=== PATIENT | female | born 1975 | race Caucasian/White ===

== ENCOUNTER → 2018-06-24 | Outpatient (CLI) | payer OTHER ==
--- NOTE | 2018-06-24 09:32 | Diagnostic Imaging Report ---
PROCEDURE: CT left lower extremity without contrast. TECHNIQUE: Multiple contiguous axial images were obtained through the left lower extremity without the use of intravenous contrast. Sagittal and coronal reformations were then performed. INDICATION: [place] a pop patellar pain There are no prior studies available for comparison. There is no fracture, dislocation or acute bony abnormality evident. The knee joint itself is fairly well-maintained. There is mild narrowing of the medial compartment of the knee joint. There is no obvious abnormality of the quadriceps or infrapatellar tendons. The cruciate ligaments, the collateral ligaments, the biceps femoris tendon and iliotibial band are not well visualized. Neither meniscus is well imaged either. There is perhaps a small joint effusion. The soft tissues are unremarkable IMPRESSION: 1. There is no evidence for an acute bony abnormality. 2. There is no obvious injury to the quadriceps or infrapatellar tendons. The other major ligaments and tendons and menisci are not well visualized. If clinical concern regarding an underlying abnormality persists, then MRI would be recommended for further evaluation. Dictated by: Dictated on workstation # [id number]
== END ==
LOC: RAD 08:41
PROVIDERS: ATTEND Nurse Practitioner Family
DX: M25.562 Pain in left knee (principal)
CPT/HCPCS: 73700

== ENCOUNTER 2018-10-25 14:23 | Emergency (ER) | payer OTHER ==
[~2018-10-25] VITALS: Ht 152.4 cm; Wt 78.5 kg
[2018-10-25] MEDS ORDERED: fentaNYL INJECTION 100 MCG/2 ML AMP ONE (14:36)
[2018-10-25] MEDS ORDERED: ONDANSETRON 4 MG/2 ML (SDV) Z0FRAN ONE (14:37)
[2018-10-25] MEDS ORDERED: NS IV 1000 ML 1,000 ML ONE (14:37)
--- NOTE | 2018-10-25 14:43 | ED Abdominal Pain ---
General Stated Complaint: ABD PAIN Exam Limitations: No Limitations History of Present Illness Date Seen by Provider: October 25, 2018 Time Seen by Provider: 14:46 Initial Comments 43-year-old female with history of lupus on methotrexate injections weekly and Plaquenil daily presents to ER with a 2 day history of right upper quadrant abdominal pain radiating through to her right flank associated with nausea and intense vomiting. She was seen at [facility] the onset of this 2 days ago , had urine sample done, that culture came back today negative, no improvement despite Macrobid. Timing/Duration: 1-2 Days Severity/Quality: Moderate Location: RUQ Radiation: No Radiation Activities at Onset: None Associated Symptoms: Nausea/Vomiting Allergies and Home Medications Allergies Coded Allergies: Penicillins (Verified Allergy, Unknown, 10/25/18) Sulfa (Sulfonamide Antibiotics) (Verified Allergy, Unknown, 10/25/18) Uncoded Allergies: loop diuretics (Allergy, Unknown, 10/25/18) increases heart rate Home Medications Fluticasone Propionate 9.9 Ml [place].susp, 1 SPRAY NS DAILY, (Reported) 1 SPRAY EACH NARE DAILY Ondansetron 4 Mg Tab.rapdis, 4 MG PO Q6H PRN for NAUSEA/VOMITING Prescribed by: WILMER MERCADO on 10/25/18 1538 Oxycodone HCl/Acetaminophen 1 Each Tablet, 1 EACH PO Q4H PRN for PAIN-MODERATE Prescribed by: WILMER MERCADO on 10/25/18 1543 Patient Home Medication List Home Medication List Reviewed: Yes Review of Systems Review of Systems Constitutional: see HPI EENTM: No Symptoms Reported Respiratory: No Symptoms Reported Cardiovascular: No Symptoms Reported Gastrointestinal: See HPI, Abdominal Pain, Nausea Genitourinary: No Symptoms Reported Musculoskeletal: no symptoms reported Skin: no symptoms reported Psychiatric/Neurological: No Symptoms Reported Endocrine: No Symptoms Reported Past Pqhjhuu-Wrdfic-Hbtwgm Hx Patient Social History Recent Foreign Travel: No Contact w/Someone Who Travel: No Physical Exam Vital Signs Vital Signs - First Documented 10/25/18 14:25 Temp 98.5 Pulse 120 Resp 18 B/P (MAP) 138/97 (111) Pulse Ox 98 O2 Delivery Room Air Capillary Refill : Height/Weight/BMI Height: '" Weight: lbs. oz. kg; BMI Method: General Appearance: WD/WN, no apparent distress HEENT: PERRL/EOMI, normal ENT inspection Respiratory: no respiratory distress, no accessory muscle use Gastrointestinal: normal bowel sounds, soft, tenderness Extremities: normal range of motion, non-tender Neurologic/Psychiatric: alert, normal mood/affect, oriented x 3 Skin: normal color, warm/dry Progress/Results/Core Measures Results/Orders Lab Results Laboratory Tests Test 10/25/18 14:38 Range/Units White Blood Count 9.9 4.3-11.0 10^3/uL Red Blood Count 4.47 4.35-5.85 10^6/uL Hemoglobin 13.1 11.5-16.0 G/DL Hematocrit 39 35-52 % Mean Corpuscular Volume 87 80-99 FL Mean Corpuscular Hemoglobin 29 25-34 PG Mean Corpuscular Hemoglobin Concent 34 32-36 G/DL Red Cell Distribution Width 12.8 10.0-14.5 % Platelet Count 444 H 130-400 10^3/uL Mean Platelet Volume 9.4 7.4-10.4 FL Neutrophils (%) (Auto) 67 42-75 % Lymphocytes (%) (Auto) 21 12-44 % Monocytes (%) (Auto) 8 0-12 % Eosinophils (%) (Auto) 4 0-10 % Basophils (%) (Auto) 0 0-10 % Neutrophils # (Auto) 6.6 1.8-7.8 X 10^3 Lymphocytes # (Auto) 2.1 1.0-4.0 X 10^3 Monocytes # (Auto) 0.8 0.0-1.0 X 10^3 Eosinophils # (Auto) 0.4 H 0.0-0.3 10^3/uL Basophils # (Auto) 0.0 0.0-0.1 10^3/uL Sodium Level 137 135-145 MMOL/L Potassium Level 3.7 3.6-5.0 MMOL/L Chloride Level 102 98-107 MMOL/L Carbon Dioxide Level 22 21-32 MMOL/L Anion Gap 13 5-14 MMOL/L Blood Urea Nitrogen 11 7-18 MG/DL Creatinine 0.86 0.60-1.30 MG/DL Estimat Glomerular Filtration Rate > 60 BUN/Creatinine Ratio 13 Glucose Level 89 70-105 MG/DL Calcium Level 9.7 8.5-10.1 MG/DL Corrected Calcium 9.5 8.5-10.1 MG/DL Total Bilirubin 0.3 0.1-1.0 MG/DL Aspartate Amino Transf (AST/SGOT) 14 5-34 U/L Alanine Aminotransferase (ALT/SGPT) 18 0-55 U/L Alkaline Phosphatase 79 40-136 U/L Total Protein 7.5 6.4-8.2 GM/DL Albumin 4.3 3.2-4.5 GM/DL Lipase 21 8-78 U/L Serum Test, Qualitative NEGATIVE NEGATIVE My Orders Orders - WILMER MERCADO APRN Fentanyl Injection (Sublimaze Injection (10/25/18 14:36) Ondansetron Injection (Zofran Injectio (10/25/18 14:37) Cbc With Automated Diff (10/25/18 14:39) Comprehensive Metabolic Panel (10/25/18 14:39) Lipase (10/25/18 14:39) Hcg,Qualitative Serum (10/25/18 14:39) Ed Iv/Invasive Line Start (10/25/18 14:39) Fentanyl Injection (Sublimaze Injection (10/25/18 14:45) Ondansetron Injection (Zofran Injectio (10/25/18 14:45) Ns Iv 1000 Ml (Sodium Chloride 0.9%) (10/25/18 14:45) Ns Iv 1000 Ml (Sodium Chloride 0.9%) (10/25/18 14:37) Us Gallbladder [id number] (10/25/18 14:48) Ketorolac Injection (Toradol Injection) (10/25/18 15:45) Medications Given in ED Current Medications Medications Dose Ordered Sig/Cruz Route Start Time Stop Time Status Last Admin Dose Admin Fentanyl Citrate 50 mcg ONCE ONCE IVP 10/25/18 14:45 10/25/18 14:46 DC 10/25/18 14:44 50 MCG Ondansetron HCl 8 mg ONCE ONCE IVP 10/25/18 14:45 10/25/18 14:46 DC 10/25/18 14:44 8 MG Vital Signs/I&O 10/25/18 14:25 Temp 98.5 Pulse 120 Resp 18 B/P (MAP) 138/97 (111) Pulse Ox 98 O2 Delivery Room Air Diagnostic Imaging Diagonstic Imaging: Xray Comments NAME: HEVER GALVAN REC#: [id number] PT STATUS: REG ER : 1975 PHYSICIAN: WILMER MERCADO APRN ADMIT DATE: 10/25/18/ER Draft Date of Exam:10/25/18 US GALLBLADDER [id number] PROCEDURE: US gallbladder. TECHNIQUE: Multiple real-time grayscale images were obtained over the right upper quadrant in various projections. INDICATION: Abdominal pain. FINDINGS: There is a 2 cm cyst in the left lobe of the liver. Liver parenchyma is otherwise unremarkable. There are multiple stones in the gallbladder. The gallbladder wall is thickened and there is a positive sonographic Otero sign. Pancreas is obscured by bowel gas. The common duct is not appreciably dilated. Right kidney measures 8.7 cm in length and appears normal. There is no ascites. IMPRESSION: Cholecystolithiasis with positive sonographic Otero sign. Dictated on workstation # [id number] Dict: 10/25/18 1545 Trans: 10/25/18 1548 [facility] [id number] Interpreted by: BUSHRA LINDA MD Electronically signed by: Departure Communication (Admissions) 5131-armored service technician reports there are 2 stones in the gallbladder each measuring about 1 cm, one of which is mobile one of which seems to be lodged in the neck. There is no pericholecystic fluid, the wall is not thickened at 2.8 mm. We will discharge home. I discussed the case with Dr. Penaloza and he'll see her on either Sunday or Sunday. Impression Primary Impression: Symptomatic cholelithiasis Disposition: HOME, SELF-CARE Condition: Stable Departure-Patient Inst. Decision time for Depature: 15:35 Referrals: TERRY FRYE APRN (PCP) Primary Care Physician JOSE PENALOZA DO Patient Instructions: Gallstones Add. Discharge Instructions: 1. Low-fat bland diet in the interim. Pain medication as directed. Return to ER for intolerable pain, intolerable vomiting or nausea, development or fevers and chills. Otherwise, plan to go to Dr. Penaloza's office on Sunday. Call Sunday morning for an appointment time. Scripts Oxycodone HCl/Acetaminophen (Oxycodone-Acetaminophen 5-325) 1 Each Tablet 1 EACH PO Q4H PRN for PAIN-MODERATE MDD 6 for 3 Days, #14 TAB 0 Refills Prov: WILMER MERCADO APRN 10/25/18 Ondansetron (Ondansetron Odt) 4 Mg Tab.rapdis 4 MG PO Q6H PRN for NAUSEA/VOMITING, #8 TAB 0 Refills Prov: WILMER MERCADO APRN 10/25/18 Copy Copies To 1: JOSE PENALOZA PETER J APRN October 25, 2018 14:42
[2018-10-25] MEDS ORDERED: ONDANSETRON 4 MG/2 ML (SDV) Z0FRAN IVP ONE (14:45)
[2018-10-25] MEDS ORDERED: fentaNYL INJECTION 100 MCG/2 ML AMP IVP ONE (14:45)
[2018-10-25] MEDS ORDERED: NS IV 1000 ML 1,000 ML IV SCH (14:45)
[2018-10-25 14:51] LABS: BASOPHILS % (AUTO) 0 % (0-10); EOSINOPHILS # (AUTO) 0.4 10^3/uL (0.0-0.3); EOSINOPHILS % (AUTO) 4 % (0-10); HEMATOCRIT 39 % (35-52); HEMOGLOBIN 13.1 G/DL (11.5-16.0); LYMPHOCYTES # (AUTO) 2.1 X 10^3 (1.0-4.0); LYMPHOCYTES % (AUTO) 21 % (12-44); MEAN CORPUSCULAR HEMOGLOBIN 29 PG (25-34); MEAN CORPUSCULAR HGB CONC 34 G/DL (32-36); MEAN CORPUSCULAR VOLUME 87 FL (80-99); MEAN PLATELET VOLUME 9.4 FL (7.4-10.4); MONOCYTES # (AUTO) 0.8 X 10^3 (0.0-1.0); MONOCYTES % (AUTO) 8 % (0-12); NEUTROPHILS # (AUTO) 6.6 X 10^3 (1.8-7.8); NEUTROPHILS % (AUTO) 67 % (42-75); PLATELET COUNT 444 10^3/uL (130-400); RED CELL DISTRIBUTION WIDTH 12.8 % (10.0-14.5); WHITE BLOOD COUNT 9.9 10^3/uL (4.3-11.0)
[2018-10-25] MEDS ORDERED: methotrexate (14:54)
[2018-10-25] MEDS ORDERED: Plaquenil (14:54)
[2018-10-25] MEDS ORDERED: FLUT9.9S NS (14:55)
[2018-10-25] MEDS ORDERED: FLUO10CA29 PO (14:55)
[2018-10-25] MEDS ORDERED: allegra (14:56)
[2018-10-25 15:07] LABS: ALANINE AMINOTRANSFERASE 18 U/L (0-55); ALBUMIN 4.3 GM/DL (3.2-4.5); ALKALINE PHOSPHATASE 79 U/L (40-136); BILIRUBIN,TOTAL 0.3 MG/DL (0.1-1.0); BUN/CREATININE RATIO 13; CALCIUM 9.7 MG/DL (8.5-10.1); CARBON DIOXIDE 22 MMOL/L (21-32); CHLORIDE 102 MMOL/L (98-107); CREATININE SERUM 0.86 MG/DL (0.60-1.30); GFR ESTIMATED > 60; GLUCOSE 89 MG/DL (70-105); LIPASE 21 U/L (8-78); POTASSIUM 3.7 MMOL/L (3.6-5.0); SODIUM 137 MMOL/L (135-145); TOTAL PROTEIN 7.5 GM/DL (6.4-8.2)
[2018-10-25] MEDS ORDERED: ONDA4TAB11 PO (15:38)
[2018-10-25] MEDS ORDERED: ACHD5005 PO (15:38)
[2018-10-25] MEDS ORDERED: OXYC-471 PO (15:43)
[2018-10-25] MEDS ORDERED: KETOROLAC 30 MG/ML VIAL IVP ONE (15:45)
--- NOTE | 2018-10-25 15:49 | Diagnostic Imaging Report ---
PROCEDURE: US gallbladder. TECHNIQUE: Multiple real-time grayscale images were obtained over the right upper quadrant in various projections. INDICATION: Abdominal pain. FINDINGS: There is a 2 cm cyst in the left lobe of the liver. Liver parenchyma is otherwise unremarkable. There are multiple stones in the gallbladder. The gallbladder wall is thickened and there is a positive sonographic Otero sign. Pancreas is obscured by bowel gas. The common duct is not appreciably dilated. Right kidney measures 8.7 cm in length and appears normal. There is no ascites. IMPRESSION: Cholecystolithiasis with positive sonographic Otero sign. Dictated by: Dictated on workstation # [id number]
[2018-10-25 16:00] VITALS: BP 122/84
== END 2018-10-25 16:00 | disposition home or self-care (01) ==
LOC: EDUNIT# 14:23 → ER 14:24
DX: K80.20 Calculus of gallbladder without cholecystitis without obstruction (principal); Z88.0 Allergy status to penicillin; Z88.2 Allergy status to sulfonamides; Z88.8 Allergy status to other drugs, medicaments and biological substances; Z79.51 Long term (current) use of inhaled steroids
CPT/HCPCS: 36415; 76705; 80053; 83690; 84703; 85025

== ENCOUNTER 2018-10-31 08:30 | Outpatient (CLI) | payer OTHER ==
[~2018-10-31] VITALS: Ht 152.4 cm; Wt 78.5 kg
[~2018-10-31 08:30] MED LIST: ACHD5005 PO; BENZ-13 PO; CETI10TA20 PO; FEXO-46 PO; FLUO10CA29 PO; FLUT9.9S NS; HYDR200T78 PO; ONDA4TAB11 PO; OXYC-471 PO; Plaquenil; allegra; methotrexate
[2018-10-31] MEDS ORDERED: ACHD5005 PO (15:09)
[2018-10-31] MEDS ORDERED: DOCU-143 PO (15:09)
== END 2018-10-31 08:56 | disposition home or self-care (01) ==
LOC: PREOP 08:30
PROVIDERS: ATTEND Surgery
DX: Z01.818 Encounter for other preprocedural examination (principal)

== ENCOUNTER 2018-10-31 11:38 | Day surgery (SDC) | payer OTHER ==
[~2018-10-31] VITALS: Ht 152.4 cm; Wt 78.5 kg
[2018-10-31] VITALS (11 sets, daily range): BP systolic 105–122; BP diastolic 60–90
[2018-10-31] MEDS: LACTATED RINGERS 1,000 ML IV PRN ×2 (12:00→14:38)
[2018-10-31] MEDS ORDERED: CLINDAMYCIN 600 MG/50 ML IVPB 50 ML IV ONE (12:15)
[2018-10-31] MEDS ORDERED: MIDAZOLAM 2 MG/2 ML (VERSED) VIAL ONE (12:27)
[2018-10-31] MEDS ORDERED: ROCURONIUM 10 MG/ML 5 ML SYRINGE IV ONE (12:27)
[2018-10-31] MEDS ORDERED: LIDOCAINE PF 2% 5 ML (XYLOCAINE) VIAL ONE (12:27)
[2018-10-31] MEDS ORDERED: fentaNYL INJECTION 250 MCG/5 ML AMP ONE (12:27)
[2018-10-31] MEDS ORDERED: DEXAMETHASONE 10 MG/ML (DECADRON) 1 ML VIAL ONE (12:27)
[2018-10-31] MEDS ORDERED: ONDANSETRON 4 MG/2 ML (SDV) Z0FRAN ONE ×3 (12:27→15:42)
[2018-10-31] MEDS ORDERED: IOPAMIDOL 61% 30 ML (ISOVUE 300) VIAL IV ONE (12:36)
[2018-10-31] MEDS ORDERED: LIDOCAINE 1% INJ 20 ML 20 ML VIAL ONE ×2 (12:36→12:37)
[2018-10-31] MEDS ORDERED: BUP/EPI 0.5% 1:200,000 (SENSORCAINE) 30 ML VIAL ONE ×2 (12:36→12:37)
[2018-10-31] MEDS ORDERED: SEVOFLURANE (ULTANE) 15 ML INHAL SOLN ONE ×2 (12:41→15:13)
[2018-10-31] MEDS ORDERED: NEOSTIGMINE 1 MG/ML 5 ML SYRINGE ONE (12:41)
[2018-10-31] MEDS ORDERED: GLYCOPYRROLATE 0.2 MG/ML (ROBINUL) 2 ML VIAL ONE (12:41)
--- NOTE | 2018-10-31 12:50 | Progress Note-Pre Operative ---
Pre-Operative Progress Note H&P Reviewed The H&P was reviewed, patient examined and no changes noted. Date Seen by Provider: October 31, 2018 Time Seen by Provider: 12:49 Date H&P Reviewed: October 31, 2018 Time H&P Reviewed: 12:49 Pre-Operative Diagnosis: RUQ ABD PAIN, SYMTOMATIC CHOLELITHIASIS JOSE PENALOZA DO October 31, 2018 12:49
[2018-10-31] MEDS ORDERED: PHENYLEPHRINE 100 MCG/ML 10 ML (ANESTHESIA) SYR ONE (14:32)
[2018-10-31] MEDS ORDERED: DOCU-143 PO (15:09)
[2018-10-31] MEDS ORDERED: ACHD5005 PO (15:09)
--- NOTE | 2018-10-31 15:09 | Progress Note-Post Operative ---
Post-Operative Progess Note Surgeon (s)/Painter Touch Up (s) Surgeon JOSE PENALOZA DO Painter Touch Up: Dr. German Pre-Operative Diagnosis RUQ ABD PAIN, SYMTOMATIC CHOLELITHIASIS Post-Operative Diagnosis same Procedure & Operative Findings Date of Procedure 10/31/18 Procedure Performed/Findings Lap erlinda c ioc Anesthesia Type gen Estimated Blood Loss Estimated blood loss (mL): min Specimens/Packing Specimens Removed gallbladder JOSE PENALOZA DO October 31, 2018 15:09
--- NOTE | 2018-10-31 15:10 | Discharge Inst-Simple/Standard ---
Discharge Inst-Standard Discharge Medications New, Converted or Re-Newed RX: RX on Chart Patient Instructions/Follow Up Plan of Care/Instructions/FU: 2-3 weeks Anupam Activity as Tolerated: No Discharge Diet: Regular Diet Other Inst to Patient Follow up Appt: Make appointment for 2 weeks. Instructions: No lifting greater than 10 pounds. No strenuous activity. May shower in 24 hours, no tub bath or soaking. Use incentive spirometer at home as directed. No Smoking Skin/Wound Care: You have special glue over incisions it will fall off on its own. Symptoms to Report: Appetite Changes, Extremity Discoloration, Numbness/Tingling, Swelling Increased , Bleeding Excessive, Eyesight Changes, Pain Increased, Urine Color Change, Constipation(Persistent), Fever over 101 degree F, Pain/Pressure in chest, Urinating Difficulty, Cough Up/Vomit Blood, Heart Beat Irreg/Pounding, Pain/ Pressure in jaw, Vaginal Bleeding Increase, Cramps in feet or legs, Lightheadedness, Pain/Pressure in shoulder, Diarrhea(Persistent), Memory Changes Suddenly, Questions/Concerns, Weight gain consecutive days, Dizziness/ Fainting, Nausea/Vomiting, Shortness of Breath, Weight gain over 2 pounds. If eyes or skin turn yellow notify physician. If questions or concerns contact your physician Or seek help at emergency department. JOSE PENALOZA DO October 31, 2018 15:10
[2018-10-31] MEDS ORDERED: KETOROLAC 30 MG/ML VIAL ONE (15:11)
[2018-10-31] MEDS ORDERED: morphine INJ 10 MG/ML 1ML (SYR OR VIAL) IVP ONE (15:15)
[2018-10-31] MEDS ORDERED: HYDROmorphone 2 MG/ML VIAL (DILAUDID) IV ONE (15:15)
[2018-10-31] MEDS ORDERED: KETOROLAC 30 MG/ML VIAL IVP ONE (15:15)
[2018-10-31] MEDS ORDERED: MEPERIDINE (DEMEROL) INJ 50 MG/ML IVP ONE (15:15)
[2018-10-31] MEDS ORDERED: morphine INJ 10 MG/ML 1ML (SYR OR VIAL) ONE (15:32)
[2018-10-31] MEDS: ONDANSETRON 4 MG/2 ML (SDV) Z0FRAN IVP PRN ×2 (15:38→15:48)
[2018-10-31] MEDS ORDERED: HYDROcodone/APAP 5 MG/325 MG (LORTAB) TAB ONE (16:32)
[2018-10-31] MEDS ORDERED: HYDROcodone/APAP 5 MG/325 MG (LORTAB) TAB PO ONE (17:00)
--- NOTE | 2018-10-31 21:00 | Diagnostic Imaging Report ---
INDICATION: Fluoroscopy during intraoperative cholangiogram. FINDINGS: Fluoroscopy was provided in the OR during intraoperative cholangiogram. 11 seconds of fluoroscopy was utilized. IMPRESSION: Fluoroscopy during intraoperative cholangiogram. Dictated by: Dictated on workstation # [id number]
--- NOTE | 2018-11-01 02:15 | OPERATIVE REPORT ---
DATE OF SERVICE: 10/31/2018 PREOPERATIVE DIAGNOSIS: Symptomatic cholelithiasis, right upper quadrant abdominal pain. POSTOPERATIVE DIAGNOSIS: Symptomatic cholelithiasis, right upper quadrant abdominal pain. SURGEON: Jose Bo DO. TAB BUILDER: Dr. German, assisted in retraction, dissection and closure. ANESTHESIA: General. ESTIMATED BLOOD LOSS: Minimal. COMPLICATIONS: None. INDICATIONS: The patient is a 43-year-old female who has been having right upper quadrant abdominal pain. She has gallstones by ultrasound. She understands risks and benefits of procedure and wished to proceed with procedure. Consent was signed in the chart. DESCRIPTION OF PROCEDURE: The patient was taken to the operating suite, placed in supine position. She was prepped and draped in sterile fashion. Timeout was performed. A midline incision was just made above the umbilicus. Cautery was used to dissect down the fascia, which was then scored, grasped and elevated. The abdomen was then entered. An 0 Vicryl was placed in a [id number] fashion for closure at the end of the case. A balloon trocar was inserted in the abdomen, pneumoperitoneum was achieved. Under direct visualization of the laparoscope, a 5 mm trocar was placed in the subxiphoid region and two 5 mm trocars were placed in the right upper quadrant. Gallbladder was grasped, elevated. Some adhesions to the gallbladder which were then taken down. The cystic duct and cystic artery were then dissected out. Clips were placed on the proximal and distal portion of the cystic artery and the distal portion of the cystic duct. The duct was then partially transected. The Arrow catheter was inserted into the duct and cholangiogram was performed. There were no filling defects. Contrast made its way into the duodenum without difficulty. The catheter was then removed. Clips were placed on the proximal portion of the cystic duct, and the duct and the artery were then transected. Hook cautery was used to dissect the gallbladder from the gallbladder fossa achieving hemostasis. Once removed, it was placed in an Endobag and removed through a 12 mm trocar site. Abdomen was irrigated and suctioned with copious amounts of irrigation. The 0 Vicryl was then closed the 12 mm fascial defect and the skin was then closed with 4-0 Monocryl in a subcuticular fashion. The abdomen was then washed and dried and Skin Affix was placed over the incisions. The patient tolerated the procedure well without any complications. She was taken to recovery room in stable condition. Job ID: [id number] DocumentID: [id number] Dictated Date: 10/31/2018 20:17:34 Customer Engineer Date: 11/01/2018 02:14:16 Dictated By: JOSE BO DO
== END 2018-10-31 17:03 | disposition home or self-care (01) ==
LOC: SDC 11:38
PROVIDERS: ATTEND Surgery
DX: K80.10 Calculus of gallbladder with chronic cholecystitis without obstruction (principal); M32.9 Systemic lupus erythematosus, unspecified; M06.9 Rheumatoid arthritis, unspecified; Z11.2 Encounter for screening for other bacterial diseases; Z88.0 Allergy status to penicillin; Z88.2 Allergy status to sulfonamides; Z79.899 Other long term (current) drug therapy
CPT/HCPCS: 84703; 87081

== ENCOUNTER → 2020-07-09 | Outpatient (CLI) | payer OTHER ==
[~2020-07-09] MED LIST changes: -CETI10TA20 PO; +CETI10TA49 PO; +DOCU-143 PO
--- NOTE | 2020-07-09 09:57 | Diagnostic Imaging Report ---
PROCEDURE: CT urinary tract, rule out kidney stone. TECHNIQUE: Multiple contiguous axial images were obtained through the abdomen and pelvis without the use of intravenous contrast. Auto Exposure Controls were utilized during the CT exam to meet ALARA standards for radiation dose reduction. INDICATION: Flank pain. Hematuria. COMPARISON: None. FINDINGS: The heart is unremarkable. The included lung bases are clear. A moderate hiatal hernia is present. No evidence of renal calculi or hydronephrosis. No perinephric fat stranding is seen. Focal areas of hypoattenuation are seen in the liver, the largest measuring 2.0 x 1.5 cm. The gallbladder is surgically absent. The spleen, pancreas, and adrenal glands have a normal appearance. There is no pathologically enlarged mesenteric or retroperitoneal adenopathy. The bowel loops are nondilated. The appendix is visualized in the right lower quadrant and has a normal appearance. There is no free fluid or free air. The osseous structures are age-appropriate. A fat-containing ventral hernia is seen left of midline just superior to the umbilicus. Ureters and bladder are grossly normal. Multi-fibroid uterus is present. Multiple phleboliths are seen in the pelvis. There is no free air, loculated collection, or adenopathy in the pelvis. IMPRESSION: 1. No evidence of obstructing calculi or hydronephrosis. No perinephric fat stranding is seen. 2. Moderate hiatal hernia. 3. Hypoattenuating foci in the liver, favored to represent benign cysts or hemangiomas. If indicated liver protocol CT of the abdomen may be considered to further evaluate. 4. Fat-containing ventral hernia left of midline just superior to the umbilicus. No entrapped loops of bowel are seen. 5. Multi-fibroid uterus. Consider further evaluation with pelvic ultrasound and gynecologic consultation. Dictated by: Dictated on workstation # [id number]
== END ==
LOC: RAD 09:45
PROVIDERS: ATTEND Nurse Practitioner Family
DX: K44.9 Diaphragmatic hernia without obstruction or gangrene (principal); K43.9 Ventral hernia without obstruction or gangrene; D25.9 Leiomyoma of uterus, unspecified
CPT/HCPCS: 74176